=== PATIENT | male | born 1960 | race Caucasian/White ===

== ENCOUNTER → 2024-04-27 15:11 | Outpatient (CLI) | payer OTHER, SELFPAY ==
--- NOTE | 2024-04-27 15:15 | DI.MRI.S_ITS ---
PROCEDURE: MR CERVICAL SPINE WO CON INDICATIONS: strain of muscle TECHNIQUE: Noncontrast sagittal T1 spin echo and T2 fast spin echo, sagittal STIR, foraminal oblique sagittal T2 fast spin echo, and axial gradient echo or T2 fast spin echo through the cervical spine. COMPARISON: [facility] MR, MR CERVICAL SPINE WITHOUT CONTRAST, 11/17/2022, 14:46. FINDINGS: Image quality: Excellent. Alignment and Curvature: Straightening of the normal cervical lordosis. Bone Marrow: Marrow demonstrates normal overall signal. Spinal Cord: Small focus of T2 hyperintense signal at C4-C5 is stable. Visualized spinal cord otherwise has normal size and signal. No cerebellar tonsillar herniation. Paraspinous Soft Tissues: No paravertebral masses. Prevertebral soft tissues are normal in thickness. C2-C3: Disc desiccation. No central canal stenosis. Facet and uncovertebral arthropathy. [id number] left and mild right neural foraminal stenosis is stable. C3-C4: Disc desiccation and minimal posterior disc osteophyte complex. No central canal stenosis. Facet and uncovertebral arthropathy. Stable moderate bilateral neural foraminal stenosis. C4-C5: Disc desiccation and mild posterior disc osteophyte complex. Mild central canal stenosis. Facet and uncovertebral arthropathy. Stable moderate right and mild left neural foraminal stenosis. C5-C6: Disc desiccation and mild height loss. Posterior disc osteophyte complex. Facet and uncovertebral arthropathy. Mild to moderate central canal stenosis is stable. Severe right and moderate left neural foraminal stenosis is stable. C6-C7: Disc desiccation and mild posterior disc osteophyte complex. Facet and uncovertebral arthropathy. Mild central canal stenosis. Moderate bilateral neural foraminal stenosis. Stable compared to prior. C7-T1: No significant central canal or neural foraminal stenosis. IMPRESSION: 1. Multilevel degenerative changes of the cervical spine as described above which are overall similar appearance compared to prior exam. 2. Mild to moderate central canal stenosis at C5-C6. 3. Severe right neural foraminal stenosis at C5-C6. Multilevel mild and moderate neural foraminal stenosis at other levels. 4. Stable small focus of T2 hyperintense signal in the cord at C4-C5, may represent a tiny syrinx or prominent central canal. Dictated by: Benito Morgan M.D. on 04/27/2024 at 16:25 Approved by: Benito Morgan M.D. on 04/27/2024 at 16:32
== END ==
LOC: MRI 15:14
PROVIDERS: Family Provider Family Medicine; PCP Family Medicine; Referring Provider Preventive Medicine Occupational Medicine; Visit Provider Preventive Medicine Occupational Medicine
DX: S16.1XXA Strain of muscle, fascia and tendon at neck level, initial encounter (principal); M47.812 Spondylosis without myelopathy or radiculopathy, cervical region; M48.02 Spinal stenosis, cervical region; X58.XXXA Exposure to other specified factors, initial encounter
CPT/HCPCS: 72141